=== PATIENT | male | born 2000 | race Two or more races ===

== ENCOUNTER 2018-05-20 21:40 | Emergency (ER) | payer SELFPAY ==
--- NOTE | 2018-05-20 21:53 | ER Document Report ---
ED Medical Screen (RME) - General Stated Complaint: STOMACH PAIN Time Seen by Provider: 05/20/18 21:51 Mode of Arrival: Ambulatory Information source: Patient, Relative Notes: ABD PAIN SINCE THIS AFTERNOON. NO DENIES N/V/F/D NO PMH I have greeted and performed a rapid initial assessment of this patient. A comprehensive ED assessment and evaluation of the patient, analysis of test results and completion of the medical decision making process will be conducted by additional ED providers. Course - Laboratory Result Diagrams: 05/20/18 22:25 05/20/18 22:25 Laboratory results interpreted by me: 05/20/18 05/20/18 22:25 22:25 WBC 16.7 H Seg Neutrophils % 84.2 H Lymphocytes % 9.2 L Absolute Neutrophils 14.1 H Urine Ketones 20 H Urine Urobilinogen 2.0 H
[2018-05-20 22:52] LABS: ABSOLUTE EOSINOPHILS # (AUTO) 0.1 10^3/uL (0.0-0.6); ABSOLUTE LYMPHOCYTES (AUTO) 1.5 10^3/uL (0.5-4.7); ABSOLUTE NEUT (AUTO) 14.1 10^3/uL (1.7-8.2); BASOPHILS % (AUTO) 0.2 % (0-2); EOSINOPHILS % (AUTO) 0.5 % (0-6); HEMATOCRIT 45.3 % (37.9-51.0); HEMOGLOBIN 15.7 g/dL (13.5-17.0); LYMPHOCYTES % (AUTO) 9.2 % (13-45); MEAN CORPUSCULAR HEMOGLOBIN 29.7 pg (27.0-33.4); MEAN CORPUSCULAR HGB CONC 34.7 g/dL (32.0-36.0); MEAN CORPUSCULAR VOLUME 86 fl (80-97); MONOCYTES % (AUTO) 5.9 % (3-13); PLATELET COUNT 316 10^3/uL (150-450); RED CELL DISTRIBUTION WIDTH 13.8 % (11.5-14.0); SEGMENTED NEUTROPHILS % (AUTO) 84.2 % (42-78); TOTAL CELLS COUNTED % (AUTO) 100 %; WHITE BLOOD COUNT 16.7 10^3/uL (4.0-10.5)
[2018-05-20 22:56] LABS: APPEARANCE,URINE CLEAR; BILIRUBIN,URINE NEGATIVE (NEGATIVE); COLOR,URINE YELLOW; GLUCOSE, URINE NEGATIVE (NEGATIVE); KETONES,URINE 20 mg/dL (NEGATIVE); LEUKOCYTE ESTERASE,URINE NEGATIVE (NEGATIVE); NITRITE,URINE NEGATIVE (NEGATIVE); PROTEIN,URINE NEGATIVE (NEGATIVE); URINE SPECIFIC GRAVITY 1.023
[2018-05-20 23:05] LABS: ALANINE AMINOTRANSFERASE 65 U/L (21-72); ALBUMIN 4.9 g/dL (3.5-5.0); ALKALINE PHOSPHATASE 123 U/L (38-126); ANION GAP 15 (5-19); ASPARTATE AMINO TRANSFERASE 35 U/L (17-59); BILIRUBIN,DIRECT 0.3 mg/dL (0.0-0.4); BILIRUBIN,TOTAL 0.5 mg/dL (0.2-1.3); BLOOD UREA NITROGEN 15 mg/dL (7-20); CALCIUM 9.9 mg/dL (8.4-10.2); CARBON DIOXIDE 24 mmol/L (22-30); CHLORIDE 100 mmol/L (98-107); GLUCOSE 98 mg/dL (75-110); POTASSIUM 3.7 mmol/L (3.6-5.0); SODIUM 138.5 mmol/L (137-145); TOTAL PROTEIN 7.7 g/dL (6.3-8.2)
[2018-05-21] MEDS ORDERED: MAG HYDROX/AL HYDROX/SIMETH SUSP 30 ML UDCUP PO ONE (01:23)
[2018-05-21] MEDS ORDERED: METOCLOPRAMIDE HCL ORAL SOLN 10 MG/10 ML UDCUP PO ONE (01:23)
[2018-05-21] MEDS ORDERED: LIDOCAINE 2% VISCOUS SOLN 20 ML UDCUP PO ONE (01:23)
--- NOTE | 2018-05-21 01:25 | ER Document Report ---
ED General - General Stated Complaint: STOMACH PAIN Time Seen by Provider: 05/20/18 21:51 Mode of Arrival: Ambulatory Notes: Patient is a 18-year-old male who presents emergency department with a chief complaint of epigastric pain. He states that is only in the middle and does not radiate. His pain started around 1300 and prior to having his pain he ate some eggs. He states that the eggs might have not been cooked all the way. He has not had this problem before. Denies any past medical history. Does not take any meds. Denies any ibuprofen use. He has not taken anything to help relieve the pain. Nothing makes the pain better or worse. He has not had this before. He is [place]-speaking and his friend is at bedside. I have offered TBS services and the patient refused. His friend will translate for him. Past Medical History - General Information source: Patient, Relative - Social History Smoking Status: Never Smoker Frequency of alcohol use: None Drug Abuse: None Family History: Reviewed & Not Pertinent Review of Systems - Review of Systems Notes: REVIEW OF SYSTEMS: CONSTITUTIONAL : Denies recent illness. Denies recent unintentional weight loss. Denies fever, chills, or sweats. EENT: Denies eye, ear, throat, or mouth pain, discharge, or symptoms. Denies na pradip or sinus congestion. CARDIOVASCULAR: Denies chest pain. RESPIRATORY: Denies shortness of breath, cough, congestion, difficulty breathing, or wheezing. GASTROINTESTINAL: See HPI GENITOURINARY: Denies difficulty urinating, burning, blood in urine, urgency or frequency. MUSCULOSKELETAL: Denies neck and back pain. Denies joint pain or swelling. SKIN: Denies rash, itchiness, or lesions HEMATOLOGIC : Denies easy bruising or bleeding. LYMPHATIC: Denies swollen, painful, enlarged glands. NEUROLOGICAL: Denies no numbness or tingling denies weakness. Denies headache. Denies altered mental status. Denies alteration in speech. PSYCHIATRIC: Denies stress, anxiety, alteration in sleep patterns, or depression. All other systems reviewed and negative. Physical Exam - Vital signs Vitals: Temp Pulse Resp BP Pulse Ox 98.6 F 74 18 118/63 98 05/20/18 21:57 05/20/18 21:57 05/20/18 21:57 05/20/18 21:57 05/20/18 21:57 - Notes Notes: PHYSICAL EXAMINATION: GENERAL: Appears well, healthy, well-nourished, no acute distress. HEAD: Normocephalic, atraumatic. EYES: PERRL, conjunctiva normal, all extraocular movements intact, sclera nonicteric ENT: Moist mucous membranes. NECK: Supple, no noticeable swelling, redness, rash. Normal range of motion. LUNGS: Equal breath sounds bilaterally and clear to auscultation. No wheezes rales or rhonchi. CARDIOVASCULAR: S1-S2, regular rate, regular rhythm. Radial pulses 2+, normal. ABDOMEN: Normoactive bowel sounds. Soft, tender epigastric area, no guarding, no rebound tenderness, and no masses palpated. EXTREMITIES: Normal strength and range of motion, no pitting or edema. No cyanosis. NEUROLOGICAL: Moves all extremities upon command. Strength 5/5 in all extremities. PSYCH: Normal mood, normal affect. SKIN: Warm, dry. No rash, lesions, ulcerations noted. Normal skin turgor. Course - Re-evaluation Re-evalutation: 05/21/18 01:26 Patient will be given a GI cocktail and we will see if he feels better. I suspect that the patient has stomach pain due to him eating eggs prior to the onset of his pain. 05/21/18 01:53 The patient's symptoms have resolved with a GI cocktail. I suspect the patient may have had uncooked eggs, causing his symptoms and his upset stomach. Since he feels better with the GI cocktail he is stable for discharge. He will be sent home with return precautions and Zofran just in case he has any nausea or vomiting. Verbal discharge instructions were given to the patient. They verbalized understanding. They are stable for discharge. - Vital Signs Vital signs: Temp Pulse Resp BP Pulse Ox 98.9 F 73 16 122/66 100 05/21/18 02:30 05/21/18 02:30 05/21/18 02:30 05/21/18 02:30 05/21/18 02:30 - Laboratory Result Diagrams: 05/20/18 22:25 05/20/18 22:25 Laboratory results interpreted by me: 05/20/18 05/20/18 22:25 22:25 WBC 16.7 H Seg Neutrophils % 84.2 H Lymphocytes % 9.2 L Absolute Neutrophils 14.1 H Urine Ketones 20 H Urine Urobilinogen 2.0 H Discharge - Discharge Clinical Impression: Abdominal pain Qualifiers: Abdominal location: epigastric Qualified Code(s): R10.13 - Epigastric pain Condition: Stable Disposition: HOME, SELF-CARE Instructions: Abdominal Pain ([facility]), Antinausea Medication ([facility]) Additional Instructions: You were seen today in the emergency department for stomach pain. The most likely cause of your stomach pain is from the food you ate earlier today. You have been given Zofran, medication to help with nausea. You can take 1 tablet every 4-6 hours as needed for any nausea or vomiting if you have any. Please make sure you rest. Stay well hydrated and drink plenty water. If you have worsening symptoms, develop chest pain, continually vomit, or have any symptoms that are worrisome to you, please return to the emergency department. Print Language: [place]
[2018-05-21] MEDS ORDERED: ONDANSETRON ODT 4 MG TAB (6 TAB/ER DISP) PO PRN (02:18)
[2018-05-21 02:30] VITALS: BP 122/66
== END 2018-05-21 02:30 | disposition home or self-care (01) ==
LOC: EDSEX → ER 21:40
DX: R10.13 Epigastric pain (principal)
CPT/HCPCS: 99284; 36415; 83690; 85025; 80053; 81001; J3490